=== PATIENT | male | born 1940 | race Caucasian/White ===

== ENCOUNTER 2016-09-15 08:58 | Observation (INO) | payer OTHER ==
[~2016-09-15] VITALS: Ht 177.8 cm; Wt 76.7 kg
--- NOTE | ~2016-09-15 | 2DMMODE ---
[facility] [address] [place] [address] 2 D/M-MODE ECHOCARDIOGRAM Name: JOSHANA MARÍA VINH Room #: 441-P [facility] IN M.R.#: [id number] Admission: 09/15/16 Attend Phys: Mikhail Joseph, Discharge: Date of : 44 Date of Service: 09/16/16 1017 Report #: [id number] THIS REPORT FOR: //name// APPROVED REPORT Study performed: 09/16/2016 08:49:14 EXAM: Comprehensive 2D, Doppler, and color-flow Echocardiogram Patient Location: In-Patient Room #: 441 Other Information Study Quality: Good Indications CVA/TIA Echo Enhancing Agent Indication: Rule out Shunt Agent(s) / Amount(s) Used: Agitated Saline 7 cc 2D Dimensions LVEF(%): 72.56 (>50%) IVSd: 9.79 (7-11mm) LVOT Diam: 20.52 (18-24mm) LVDd: 50.81 mm PWd: 9.35 (7-11mm) Ascending Ao: 34.02 (22-36mm) LVDs: 29.53 (25-40mm) Aortic Root: 34.47 mm Crandall's LVEF: 72.56 % Volumes Left Atrial Volume (Systole) Single Plane 4CH: 39.27 mL Single Plane 2CH: 66.18 mL LA ESV Index: 31.00 mL/m2 Aortic Valve AoV Peak Andrey.: 1.55 m/s AO Peak Gr.: 9.60 mmHg LVOT Max P.89 mmHg LVOT Max V: 0.99 m/s ADDISON Vmax: 2.10 cm2 Mitral Valve E/A Ratio: 1.0 MV Decel. Time: 200.26 ms [facility] [place] [place] [address] 2 D/M-MODE ECHOCARDIOGRAM Name: ANA MARÍA MORENO VINH Room #: 441-[facility] IN .R.#: [id number] Admission: 09/15/16 Attend Phys: Mikhail Joseph, Discharge: Date of : 44 Date of Service: 09/16/16 1017 Report #: [id number] MV E Max Andrey.: 0.69 m/s MV A Andrey.: 0.70 m/s MV PHT: 58.07 ms IVRT: 78.43 ms Pulmonary Valve PV Peak Andrey.: 0.78 m/s PV Peak Gr.: 2.46 mmHg Pulmonary Vein P Vein S: 0.69 m/s P Vein D: 0.31 m/s P Vein S/D Ratio: 2.23 Tricuspid Valve TR Peak Andrey.: 2.63 m/s RAP Estimate: 5.00 mmHg TR Peak Gr.: 27.70 mmHg RVSP: 33.00 mmHg Left Ventricle The left ventricle is normal size. There is normal LV segmental wall motion. There is normal left ventricular wall thickness. The left ventricular systolic function is normal. The left ventricular ejection fraction is within the normal range. LVEF 55%. The left ventricular diastolic function is normal. Right Ventricle The right ventricle is normal size. The right ventricular systolic function is normal. Atria The left atrium size is normal. No shunting by contrast bubble injection Right atrium is dilated. Aortic Valve Aortic valve is calcified, trileaflet. Mild aortic regurgitation. There is no aortic valvular stenosis. Mitral Valve The mitral valve is normal in structure. Mild mitral regurgitation. No evidence of mitral valve stenosis. Tricuspid Valve The tricuspid valve is normal in structure. There is mild tricuspid regurgitation. The right atrial pressure is estimated at 5 mmHg with an estimated PAP of 33 mmHg. There is mild pulmonary hypertension. [address] [address] 2 D/M-MODE ECHOCARDIOGRAM Name: JOSHANA MARÍASUZANNA JUSTICE Room #: 441-P [facility] IN [facility]#: [id number] Admission: 09/15/16 Attend Phys: Mikhail Joseph, Discharge: Date of : 44 Date of Service: 09/16/16 1017 Report #: [id number] Pulmonic Valve The pulmonary valve is normal in structure. There is no pulmonic valvular regurgitation. Great Vessels The aortic root is normal in size. The ascending aorta is normal in size. IVC is normal in size and collapses >50% with inspiration. Pericardium There is no pericardial effusion. <Conclusion> The left ventricular systolic function is normal. There is normal LV segmental wall motion. LVEF 55%. Aortic valve is calcified, trileaflet. Mild aortic regurgitation, no stenosis. The mitral valve is normal in structure. Mild mitral regurgitation. Pulmonary artery pressure of 30mmHg No shunting by contrast bubble injection There is no pericardial effusion. <ELECTRONICALLY SIGNED> By: Connor Montero MD, [facility] 09/16/16 1017 1017 1017 Connor Montero MD, FACC /INF
--- NOTE | ~2016-09-15 | EKG ---
[address] [address] ELECTROCARDIOGRAM REPORT Name: ANA MARÍA MORENO Room #: 441-P [facility]..#: [id number] Admission: 09/15/16 Attend Phys: Mikhail Joseph MD Discharge: Date of : 44 Report #: [id number] THIS REPORT FOR: //name// [facility] ED Test Date: 2016-09-15 Test Time: 09:33:43 Pat Name: ANA MARÍA MORENO Department: Room: [facility] Gender: M Chain Person: henrry : 1940 Requested By: Alfredo Hackett Order Number: [id number] MD: Davi Way Measurements Intervals Celeste Rate: 62 P: 26 WA: 127 QRS: 21 QRSD: 90 T: 54 QT: 419 QTc: 426 Interpretive Statements Sinus rhythm Abnormal R-wave progression, early transition Compared to ECG 08/20/2013 18:45:55 Short WA interval no longer present ST (T wave) deviation no longer present Electronically Signed On 09-15-2016 21:16:[address] [email or web address] <ELECTRONICALLY SIGNED> By: Davi Way MD 09/15/[address] MD /EPI
--- NOTE | ~2016-09-15 | H ---
[facility] [place] [address] HISTORY AND PHYSICAL Name: ANA MARÍA MORENO Room #: 441-P [facility] Blank Garcia#: [id number] Admission: 09/15/16 Attend Phys: Mikhail Joseph MD Discharge: 09/16/16 Date of : 44 Report #: [id number] THIS REPORT FOR: //name// CC: Mikhail Joseph DATE OF SERVICE: 09/16/2016 CHIEF COMPLAINT: Left-sided numbness, tingling. HISTORY OF PRESENT ILLNESS: The patient is a 76-year-old male who states he was his normal self yesterday morning, went out to get his paper, started feeling some tingling and numbness in the left side of his face, left arm, and left leg. States symptoms lasted about 10 minutes and he came in. He states he has had some visual blurriness off and on in the past and also some intermittent tingling in the bottom of his feet. He states all the numbness resolved by the time he was in the ER. He does take aspirin daily. PAST MEDICAL HISTORY: Significant for degenerative arthritis. MEDICATIONS: Aspirin 81 mg a day and vitamin D daily. ALLERGIES: No known drug allergies. SOCIAL HISTORY: He smokes cigarettes occasionally. Alcohol, he drinks about 4 glasses of red wine a day. No recreational drugs. REVIEW OF SYSTEMS: CONSTITUTIONAL: No fevers or chills. HEENT: No headaches. He has visual changes as above. NECK: No neck pain or swelling. CHEST: No chest pain, tightness in chest, short of breath, cough or sputum production. GASTROINTESTINAL: No nausea, vomiting, diarrhea or constipation. GENITOURINARY: No burning or frequency. EXTREMITIES: No swelling or stiffness. NEUROLOGIC: He has the tingliness that resolved. No focal weakness. SKIN: No rashes, wounds or bruits. PHYSICAL EXAMINATION: VITAL SIGNS: Blood pressure 191/85, in the ER is now 137/80. His pulse is 64, his respiratory rate is 12, he is afebrile. GENERAL: The patient is currently awake and alert, in no acute distress. His symptoms have completely resolved. HEENT: His mucous membranes are moist. NECK: Supple without adenopathy, thyromegaly or bruits. CHEST: Clear to auscultation, no murmurs. [address] [address] HISTORY AND PHYSICAL Name: ANA MARÍA MORENO [place] Room #: [facility] Blank Garcia#: [id number] Admission: 09/15/16 Attend Phys: Mikhail Joseph MD Discharge: 09/16/16 Date of : 44 Report #: [id number] ABDOMEN: Soft, nondistended, nontender, no masses. Normoactive bowel sounds. CARDIOVASCULAR: Regular without murmur. EXTREMITIES: Showed no edema. NEUROLOGIC: No numbness or weakness at this time. His motor and sensory is grossly intact. Reflexes are equal. EKG, sinus rhythm, rate of 62, no ST segment changes. LABORATORY DATA: Sodium 141, potassium 4.3, chloride 106, bicarbonate 25, BUN 16, creatinine 0.9, glucose 137. Troponin less than ____. Triglycerides 325, total cholesterol 211, LDL 98, HDL 48. INR 1.0. WBC 7.8, hemoglobin 16.2, hematocrit 46.6, platelet count 173. CT scan of the head shows some age-related atrophy and some subtle white matter changes. No acute infarction or hemorrhage. Chest x-ray shows no acute process. CTA perfusion shows no focal ____ or stenosis in the neck. ASSESSMENT: Transient ischemic attack. Dr. Muller, neurology was consulted in the ER and CT perfusion studies were done. We have started the patient on aspirin 325 mg a day and atorvastatin at night last night. In light of the resolution of symptoms, I think he needs to have a complete carotid echo and MRI done and if those are negative, we can discharge home with aspirin and a statin. <ELECTRONICALLY SIGNED> By: Mikhail Joseph MD 09/18/16 0714 0727 1055 Mikhail Joseph MD /nt
[~2016-09-15 08:58] MED LIST: ASA81BEC PO; SULFASALAZINE500 M5 PO; VITAMIN D1000 UNI1 PO; ZOFRAN ODT4 MG PO
[2016-09-15 08:59] VITALS: BP 191/85
[2016-09-15 09:27] LABS: POC CA IONIZED 4.5 mg/dL (4.5-5.3); POC CREATININE 0.9 mg/dL (0.6-1.3); POC HEMOGLOBIN 15.6 g/dL (14.0-18.0); POC POTASSIUM 4.4 mmol/L (3.5-5.1)
[2016-09-15 09:31] LABS: HEMATOCRIT 46.6 % (42.0-52.0); HEMOGLOBIN 16.2 gm/dL (14.0-18.0); MCH 32.8 pg (26.0-34.0); MCHC 34.8 g/dL (28.0-37.0); MCV 94.4 fL (80.0-100.0); RBC 4.94 mil/uL (4.50-6.00); RDW 12.5 % (10.5-14.5); WBC 7.8 thou/uL (4.0-11.0)
[2016-09-15 09:42] LABS: ANION GAP 11 mmol/L (7-16); BUN 13 mg/dL (7-18); CHLORIDE 106 mmol/L (98-107); CO2 24 mmol/L (21-32); GLUCOSE 137 mg/dL (74-106); POTASSIUM 4.3 mmol/L (3.5-5.1); SODIUM 141 mmol/L (136-145)
[2016-09-15 09:45] LABS: APTT 25.6 Seconds (24.5-32.8); PROTIME 9.9 Seconds (9.3-11.4)
[2016-09-15 09:49] LABS: TROPONIN-I < 0.04 ng/mL (<0.04-0.07)
[2016-09-15 11:50] VITALS: BP 150/68
[2016-09-15 12:16] VITALS: BP 144/69
[2016-09-15 14:57] LABS: CHOLESTEROL 211 mg/dL (<200); HDL CHOLESTEROL 48 mg/dL (>40); LDL CHOLESTEROL 98 mg/dL (<100); TC:HDL 4.4 Ratio (Not establshd); TRIGLYCERIDE 325 mg/dL (<150); VLDL 65 mg/dL (<40)
[2016-09-15 15:24] VITALS: BP 145/66
[2016-09-15 19:35] VITALS: BP 142/60
[2016-09-16 04:57] VITALS: BP 137/70
[2016-09-16 07:02] VITALS: BP 148/65
[2016-09-16] MEDS ORDERED: ASPIRIN325 PO (12:30)
[2016-09-16] MEDS ORDERED: ATORVASTATIN CA20 MG PO (12:30)
[2016-09-16 12:43] VITALS: BP 148/65
[2016-09-16 12:44] VITALS: BP 148/65
[2016-09-17 05:10] LABS: GLYCOHEMOGLOBIN (HGB A1C) 5.5 % (4.8-5.6)
== END 2016-09-16 13:25 | disposition home or self-care (01) ==
LOC: ER 08:58 → EROBS 11:19 → 4S 11:19
PROVIDERS: Emergency Medicine; Psychiatry & Neurology Neurology
DX: G45.9 Transient cerebral ischemic attack, unspecified (principal); E78.5 Hyperlipidemia, unspecified; I10 Essential (primary) hypertension; M25.551 Pain in right hip; M25.561 Pain in right knee; F17.210 Nicotine dependence, cigarettes, uncomplicated

== ENCOUNTER 2018-12-18 17:39 | Emergency (ER) | payer OTHER ==
[~2018-12-18] VITALS: Ht 175.3 cm; Wt 74.8 kg
[~2018-12-18 17:39] MED LIST changes: +ASPIRIN325 PO; +ATORVASTATIN CA20 MG PO
[2018-12-18 17:46] VITALS: BP 152/82
== END 2018-12-18 18:43 | disposition home or self-care (01) ==
LOC: ER 17:39
DX: S61.011A Laceration without foreign body of right thumb without damage to nail, initial encounter (principal); M19.90 Unspecified osteoarthritis, unspecified site; F17.290 Nicotine dependence, other tobacco product, uncomplicated; Z98.890 Other specified postprocedural states; W26.8XXA Contact with other sharp object(s), not elsewhere classified, initial encounter; Y92.89 Other specified places as the place of occurrence of the external cause; Y93.89 Activity, other specified; Y99.8 Other external cause status

== ENCOUNTER → 2019-09-29 | Outpatient (CLI) | payer OTHER ==
[2019-09-29 12:33] LABS: CALCIUM 9.2 mg/dL (8.5-10.1); POTASSIUM 4.5 mmol/L (3.5-5.1)
== END ==
LOC: CAT 11:56
PROVIDERS: ATTEND Specialist
DX: N20.0 Calculus of kidney (principal); C61 Malignant neoplasm of prostate; N28.1 Cyst of kidney, acquired; N40.0 Benign prostatic hyperplasia without lower urinary tract symptoms; I70.0 Atherosclerosis of aorta; J98.4 Other disorders of lung

== ENCOUNTER → 2019-10-04 | Outpatient (CLI) | payer OTHER | LOC: NUC 08:32 | PROVIDERS: ATTEND Specialist | DX: C61 Malignant neoplasm of prostate (principal) ==

== ENCOUNTER → 2019-10-17 | Outpatient (CLI) | payer OTHER | LOC: LAB 08:56 | PROVIDERS: ATTEND Family Medicine | DX: R50.9 Fever, unspecified (principal); R05 Cough; Z20.828 Contact with and (suspected) exposure to other viral communicable diseases ==

== ENCOUNTER → 2019-11-07 | Outpatient (CLI) | payer OTHER | LOC: LAB 10:10 | PROVIDERS: ATTEND Family Medicine | DX: R05 Cough (principal); Z20.828 Contact with and (suspected) exposure to other viral communicable diseases ==